=== PATIENT | female | born 1985 | race American Indian/Alaskan Native ===

== ENCOUNTER 2017-12-14 02:19 | Emergency (ER) | payer BC, MEDICAID ==
[2017-12-14] MEDS ORDERED: NACL 0.9% 1000 ML 1,000 ML IV ONE (02:33)
[2017-12-14 03:35] LABS: Albumin 4.4 g/dL (3.9-5); BUN/Creatinine Ratio 22; Blood Urea Nitrogen 13 mg/dL (7-17); Calcium 9.3 mg/dL (8.4-10.2); Hemolysis Index 104; Lipase 27 units/L (13-60)
[2017-12-14 03:46] LABS: INR 0.81 (0.87-1.13)
[2017-12-14 03:47] LABS: Partial Thromboplastin Time 33.7 Sec. (24.2-36.6)
[2017-12-14 03:50] LABS: Alanine Aminotransferase 11 units/L (7-56)
[2017-12-14] MEDS ORDERED: ZOFRAN ODT PO ONE (04:10)
[2017-12-14] MEDS ORDERED: ZOFRAN ODT ONE (04:11)
[2017-12-14 04:27] LABS: Basophils # (Auto) 0.1 K/mm3 (0.0-0.1); Basophils % (Auto) 0.8 % (0.0-1.8); Eosinophils # (Auto) 0.1 K/mm3 (0.0-0.4); Eosinophils % (Auto) 1.9 % (0.0-4.3); Hematocrit 39.5 % (30.3-42.9); Hemoglobin 13.4 gm/dl (10.1-14.3); Lymphocytes # (Auto) 2.9 K/mm3 (1.2-5.4); Lymphocytes % (Auto) 42.2 % (13.4-35.0); Mean Corpuscular HGB Conc 34 % (30-34); Mean Corpuscular Hemoglobin 29 pg (28-32); Mean Corpuscular Volume 86 fl (79-97); Monocytes # (Auto) 0.4 K/mm3 (0.0-0.8); Monocytes % (Auto) 5.6 % (0.0-7.3); Platelet Count 184 K/mm3 (140-440); Red Blood Count 4.59 M/mm3 (3.65-5.03)
--- NOTE | 2017-12-14 07:34 | Emergency Department Report ---
ED General Adult HPI - General Chief complaint: GI Bleed Stated complaint: VOMITING BLOOD Time Seen by Provider: 12/14/17 07:01 Source: patient, RN notes reviewed, old records reviewed Mode of arrival: Ambulatory Limitations: No Limitations - History of Present Illness Initial comments: This is a 32-year-old female who is previously unknown to this provider. Her primary care doctor is Dr. Spain. She reports that she is not . She presents to the ER with a complaint of spitting up blood. This started at 12: 00 in the morning. There was no trauma. It is now resolved. It is painless, does not have exacerbating or relieving factors. She denies vomiting blood, does not think that she is coughing, denies bright red blood per rectum, and also denies black tarry stool. She did described central chest pressure at 12:00 in the morning, which lasted for a few minutes, it did not radiate to the back, arms or neck. There is no diaphoresis, there is no leg pain, patient does not take estrogen supplementation or control tablets, and has no pulmonary embolus or DVT risk factors. -: Sudden Location: mouth, chest Radiation: non-radiation Severity scale (0 -10): 3 Consistency: now resolved Improves with: none Worsens with: none Associated Symptoms: denies other symptoms. denies: confusion, cough, diaphoresis, fever/chills, headaches, loss of appetite, malaise, nausea/vomiting , rash, seizure, shortness of breath, syncope, weakness - Related Data Previous Rx's Medication Instructions Recorded Last Taken Type Miconazole 2% [Monistat 7 Vag 1 applicator VG QHS #1 tube 12/15/15 03/01/17 Rx Cream] Docusate Sodium [Colace] 100 mg PO BID PRN #60 capsule 03/09/17 Unknown Rx Ferrous Sulfate [Feosol 325 MG tab] 325 mg PO BID #60 tablet 03/09/17 Unknown Rx Ibuprofen [Motrin 800 MG tab] 800 mg PO TID PRN #30 tablet 03/09/17 Unknown Rx Allergies Allergy/AdvReac Type Severity Reaction Status Date / Time No Known Allergies Allergy Unverified 12/15/15 08:55 ED Review of Systems ROS: Stated complaint: VOMITING BLOOD Other details as noted in HPI Comment: All other systems reviewed and negative ED Past Medical Hx - Past Medical History Previous Medical History?: No Hx Hypertension: No Hx Congestive Heart Failure: No Hx Diabetes: No Hx Deep Vein Thrombosis: No Hx Renal Disease: No Hx Sickle Cell Disease: No Hx Seizures: No Hx Asthma: No Hx COPD: No Hx HIV: No Additional medical history: ANEMIA. HYPOGLYCEMIA - Surgical History Past Surgical History?: No - Social History Smoking Status: Never Smoker Substance Use Type: None - Medications Home Medications: Home Medications Medication Instructions Recorded Confirmed Last Taken Type Miconazole 2% [Monistat 7 Vag 1 applicator VG QHS #1 tube 12/15/15 03/07/17 Rx Cream] Docusate Sodium [Colace] 100 mg PO BID PRN #60 capsule 03/09/17 Unknown Rx Ferrous Sulfate [Feosol 325 MG tab] 325 mg PO BID #60 tablet 03/09/17 Unknown Rx Ibuprofen [Motrin 800 MG tab] 800 mg PO TID PRN #30 tablet 03/09/17 Unknown Rx ED Physical Exam - General Limitations: No Limitations General appearance: alert, in no apparent distress - Head Head exam: Present: atraumatic, normocephalic - Eye Eye exam: Present: normal appearance, PERRL, EOMI. Absent: nystagmus - ENT ENT exam: Present: normal exam, normal orophraynx, mucous membranes moist, normal external ear exam, other (gingiva are nontender. No obvious bleeding noted in the mouth. There is no sinus tenderness.) - Neck Neck exam: Present: normal inspection, full ROM - Respiratory Respiratory exam: Present: normal lung sounds bilaterally. Absent: respiratory distress - Cardiovascular Cardiovascular Exam: Present: regular rate, normal rhythm, normal heart sounds. Absent: bradycardia, tachycardia, irregular rhythm, systolic murmur, diastolic murmur, rubs, gallop - GI/Abdominal GI/Abdominal exam: Present: soft, normal bowel sounds. Absent: distended, tenderness, guarding, rebound, rigid, pulsatile mass - Extremities Exam Extremities exam: Present: normal inspection, full ROM, normal capillary refill. Absent: pedal edema, joint swelling, calf tenderness - Back Exam Back exam: Present: normal inspection, full ROM. Absent: tenderness, CVA tenderness (R), paraspinal tenderness, vertebral tenderness - Neurological Exam Neurological exam: Present: alert, oriented X3, CN II-XII intact, normal gait, other (Extraocular movements intact. Tongue midline. No facial droop. Facial sensation intact to light touch in the V1, V2, V3 distribution bilaterally. 5 and 5 strength in 4 extremities.. Sensation is intact to light touch in 4 extremities.). Absent: motor sensory deficit - Psychiatric Psychiatric exam: Present: normal affect, normal mood - Skin Skin exam: Present: warm, dry, intact, normal color. Absent: rash ED Course Vital Signs 12/14/17 12/14/17 02:27 04:33 Temperature 98.1 F Pulse Rate 70 78 Respiratory 18 18 Rate Blood Pressure 121/77 Blood Pressure 141/89 [Left] O2 Sat by Pulse 100 100 Oximetry ED Medical Decision Making - Lab Data Result diagrams: 12/14/17 04:08 12/14/17 02:57 - EKG Data -: EKG Interpreted by Me EKG shows normal: sinus rhythm, axis, intervals, QRS complexes Rate: bradycardia - EKG Data When compared to previous EKG there are: previous EKG unavailable 12/14/17 08:22 Sinus bradycardia, 59 bpm, normal axis, normal intervals, incomplete right bundle branch block, not consistent with a STEMI - Radiology Data Radiology results: report reviewed, image reviewed X-ray of the chest, interpreted by myself and radiology: No acute disease - Medical Decision Making Differential diagnosis, including but not limited to: Bronchitis, bronchiectasis , oral bleed, chest pressure, pneumonia Assessment and plan: 32-year-old female with an initial complaint of spitting up blood and chest tightness. The patient is afebrile with reassuring vital signs and has no obvious signs of bleeding. Laboratory studies unremarkable, oral exam unremarkable, pulmonary exam unremarkable, x-ray the chest is negative , and EKG is unremarkable. No pulmonary embolus or DVT risk factors, low risk by well's criteria, PERC negative. Patient has been observed in the ER for hours without clinical decompensation. There does not appear to be an emergent condition at this time, she is instructed to avoid NSAIDs and avoid heavy and spicy foods and to follow up with outpatient gastroenterology. Critical care attestation.: If time is entered above; I have spent that time in minutes in the direct care of this critically ill patient, excluding procedure time. ED Disposition Clinical Impression: History of oral hemorrhage Disposition: TO HOME OR SELFCARE Is pt being admited?: No Does the pt Need Aspirin: No Condition: Good Additional Instructions: Follow-up with a primary care doctor or gastroenterology doctor within the next month. Avoid consumption of heavy, spicy foods, Motrin, ibuprofen, Aleve, Naprosyn. Avoid consumption of alcohol. Return to the ER right away with new pain, worsened pain, migration of pain, fevers, chills, lethargy, irritability, projectile vomiting, change in mental status, confusion, inability to tolerate liquid feeds. Referrals: PRIMARY CARE, [Primary Care Provider] - 3-5 Days [facility] [Provider Group] - 3-5 Days [facility] [Provider Group] - 3-5 Days Forms: Accompanied Note
--- NOTE | 2017-12-14 08:05 | XRay Report ---
Chest 2 views: History: History of spitting up blood. Findings: Normal cardiomediastinal silhouette. Trachea is midline. No consolidation, and no evidence of pleural effusion or mass. Impression: No acute cardiopulmonary findings
[2017-12-14 08:27] VITALS: BP 119/81
== END 2017-12-14 09:24 | disposition home or self-care (01) ==
LOC: ED 02:19
DX: R04.2 Hemoptysis (principal)
CPT/HCPCS: 36415; 71046; 80053; 83690; 85025; 85610; 85730; 86850; 86900; 86901; 93005; 93010; 99284; J7030; Q0162